=== PATIENT | male | born 1985 | race Caucasian/White ===

== ENCOUNTER 2023-06-23 10:10 | Day surgery (SDC) | payer BC ==
[2023-06-22 12:03] VITALS: BMI 55.9
[2023-06-23 11:11] LABS: Anion Gap 11 mmol/L (10-20); BUN (Urea Nitrogen) 16 mg/dL (8.9-20.6); Calc. Creatinine Clearance 288 mL/min (70-130); Calcium 9.2 mg/dL (7.8-10.44); Carbon Dioxide 28 mmol/L (22-29); Chloride 99 mmol/L (98-107); Estimated GFR 114; Glucose 236 mg/dL (70-105); Potassium 4.4 mmol/L (3.5-5.1); Sodium 134 mmol/L (136-145)
[2023-06-23] MEDS ORDERED: Bupivacaine PF 0.5% 30 ML VIAL ONE (12:50)
[2023-06-23] MEDS ORDERED: CEFAZOLIN 2 GM VIAL ONE (13:02)
[2023-06-23] MEDS ORDERED: PROPOFOL 20 ML ONE (13:03)
[2023-06-23] MEDS ORDERED: Midazolam HCl 2 mg/2 ml Vial ONE (13:03)
[2023-06-23] MEDS ORDERED: Ondansetron PF 4 MG/2 ML Vial ONE (13:03)
[2023-06-23] MEDS ORDERED: Fentanyl 250 MCG/5 ML VIAL ONE (13:03)
[2023-06-23] MEDS ORDERED: fentaNYL 50 mcg/mL 1 mL Vial ONE ×3 (13:04→13:34)
[2023-06-23] MEDS ORDERED: Succinylcholine 200 MG/10 ml SYRINGE FS ONE (13:07)
[2023-06-23] MEDS ORDERED: EPINEPHrine 1 MG/ML AMP ONE (13:22)
[2023-06-23] MEDS ORDERED: PHENYLEPHRINE-NS 100 MCG/ML 10 ML SYRINGE ONE (13:44)
[2023-06-23] MEDS ORDERED: HYDROcodone/Acetaminophen 5/325 mg Tablet PO PRN (13:53)
[2023-06-23] MEDS ORDERED: Acetaminophen 325 MG TAB PO PRN (13:53)
== END 2023-06-23 15:10 | disposition home or self-care (01) ==
LOC: CSHSDC 10:10
PROVIDERS: ATTEND Surgery
PROC: 07T60ZZ Resection of Left Axillary Lymphatic, Open Approach (ICD-10-PCS; principal; 2023-06-23)
DX: C82.03 Follicular lymphoma grade I, intra-abdominal lymph nodes (principal); E11.9 Type 2 diabetes mellitus without complications; E66.01 Morbid (severe) obesity due to excess calories; Z68.43 Body mass index [BMI] 50.0-59.9, adult; Z98.890 Other specified postprocedural states; Z79.899 Other long term (current) drug therapy
CPT/HCPCS: 36415; 80048; 88184; 88307; 88341; 88342; 93005; 93010; C1713; J0171; J2250; J2405; J2704; J3010; S0020

== ENCOUNTER 2024-05-06 10:42 | Outpatient (CLI) | payer BC | END 2024-05-06 10:43 | disposition home or self-care (01) | LOC: CSHSLEEP 10:42 | PROVIDERS: ATTEND Family Medicine | DX: G47.33 Obstructive sleep apnea (adult) (pediatric) (principal); R53.83 Other fatigue; F32.A Depression, unspecified; E11.9 Type 2 diabetes mellitus without complications; E66.9 Obesity, unspecified; Z68.43 Body mass index [BMI] 50.0-59.9, adult; R06.83 Snoring | CPT/HCPCS: 95811 ==